=== PATIENT | male | born 1945 | race Caucasian/White ===

== ENCOUNTER → 2016-10-29 | Outpatient (CLI) | payer MEDICARE, BC, OTHER ==
[~2016-10-29] MED LIST: /BACL20TA PO; ACUL0.5S OD; ADV250INH INH; ADV500INH INH; ALBU17IN INH; AMLO25TA PO; ASPI81TA11 PO; ASPI81TA85 PO; AZEL0.1S; AZEL1POW; BACL10TA PO; BACL10TA2 PO; CELE-19 PO; COUM2.5T11 PO; COZA100T2 PO; DOCU10ELUD PO; DRIS50002 PO; FURO20TA2 PO; GABA-283 PO; GABA300C2 PO; GABA300C3 PO; JANU100T PO; LASI20TA PO; LEVO500T PO; LOSA100T36 PO; LYRI75CA PO; MELO15TA4 PO; METF500T PO; MOBI15TA PO; NEUR300C PO; NYST100024 TOP; OMEP10CASR PO; OMEP20CA3 PO; OMEP40CA2 PO; OXYC1SOL PO; PERC5TAB6 PO; PRED1SUS OD; PRED5TA PO; PRED5TAB PO; ROPI0.25 PO; ROXI1TAB2 PO; SITA50TAB PO; TIOT18INH INH; TRAM50TA2 PO; TYLE325T5 PO; ULTR50TA PO; VITA100037 PO; VITA500047 PO; ZAFI20TA PO; [UNRECOGNIZED DRUG - CODE] PO; [UNRECOGNIZED DRUG - CODE] PO; ipratropium INH; oxycodone OR; proventil inhaler INH; vitamin B OR
== END ==
LOC: M SMT 13:33
PROVIDERS: ATTEND Urology
DX: Z85.46 Personal history of malignant neoplasm of prostate (principal); R97.20 Elevated prostate specific antigen [PSA]

== ENCOUNTER → 2016-11-10 | Outpatient (CLI) | payer MEDICARE, BC, OTHER ==
[~2016-11-10] MED LIST changes: +GABA-282 PO; -GABA300C3 PO
--- NOTE | 2016-11-10 16:09 | REP ---
CERVICAL SPINE SERIES: Full cervical spine series is performed with 9 total views obtained. No compression fracture is seen. There is straightening of the normal cervical lordosis with limited motion with flexion and extension. Anterior bridging osteophytes and diffuse calcification of the anterior longitudinal ligament is noted. There is mild disc space narrowing and subchondral sclerosis at virtually all levels. Posterior osteophytosis and calcification of the posterior longitudinal ligament is noted. There is diffuse narrowing, sclerosis and spurring at the posterior facet joints. Uncovertebral and facet spurring appears to cause mild to moderate neural foraminal narrowing at C4-5 on the left as well as on the right, as well as mild to moderate narrowing of C3-4 on the right. No change from the prior study of 12/10/2014 Signed by Ran Ness MD 11/23/2016 04:35 P
--- NOTE | 2016-11-10 16:13 | REP ---
LUMBOSACRAL SPINE: Seven views of the lumbosacral spine are performed including flexion and extension lateral views, seven total views obtained. COMPARISON: 12/10/2014 Large bridging osteophytes are again seen diffusely involving virtually all levels except for L4-5. There is no compression fracture, with normal lumbar lordosis. There is no spondylolysis. There appears to be minimal anterior spondylolisthesis of L4 which is stable compared to the prior exam. There is mild to moderate diffuse disc space narrowing and subchondral sclerosis with vacuum at L4-5. There is sclerosis at the posterior fact joints with significant spurring at L4-5 and L5-S1. Posterior elements are intact. IMPRESSION: Advanced degenerative changes as discussed in detail above, appears similar to the prior exam of 12/10/2014. Signed by Ran Ness MD 11/11/2016 12:26 P
== END ==
LOC: M RAD 15:09
PROVIDERS: ATTEND Neurological Surgery
DX: M50.90 Cervical disc disorder, unspecified, unspecified cervical region (principal); M25.78 Osteophyte, vertebrae; M51.86 Other intervertebral disc disorders, lumbar region; M47.892 Other spondylosis, cervical region; M50.221 Other cervical disc displacement at C4-C5 level
CPT/HCPCS: 72052; 72114; G0463

== ENCOUNTER → 2017-09-09 | Outpatient (CLI) | payer MEDICARE, BC, OTHER ==
[2017-09-09 14:34] LABS: PROSTATIC SPECIFIC AG MONITOR < 0.01 NG/ML (< 4.0)
== END ==
LOC: M SMT 10:32
DX: Z08 Encounter for follow-up examination after completed treatment for malignant neoplasm (principal); Z85.46 Personal history of malignant neoplasm of prostate
CPT/HCPCS: 84153

== ENCOUNTER → 2018-03-06 | Outpatient (CLI) | payer MEDICARE ==
[2018-03-06 19:32] LABS: PROSTATIC SPECIFIC AG MONITOR < 0.01 NG/ML (< 4.0)
== END ==
LOC: M SMT 12:00
DX: Z85.46 Personal history of malignant neoplasm of prostate (principal)
CPT/HCPCS: 84153

== ENCOUNTER 2018-04-12 08:22 | Day surgery (SDC) | payer MEDICARE ==
[2018-04-12] MEDS ORDERED: GENTAMICIN 100 MG in APPROPRIATE DILUENT 1 EA IV (08:45)
[2018-04-12] MEDS ORDERED: BACTRIM IV 160MG-800MG/10ML VIAL (S0039) XX ×2 (08:45)
[2018-04-12 09:10] LABS: INR 1.04; PROTHROMBIN TIME 13.7 SECONDS (12.1-14.4)
[2018-04-12 09:11] LABS: PARTIAL THROMBOPLASTIN TIME 36.6 SECONDS (25.4-37.6)
[2018-04-12] MEDS: VANCOMYCIN HCL 1,000 MG, VIAL MATE ADAPTER 1 EACH in D5W 250 ML IV (09:15)
[2018-04-12] MEDS ORDERED: fentaNYL 250 MCG/5 ML INJECTION (J3010) As Ordered (10:12)
[2018-04-12] MEDS ORDERED: LIDOCAINE 2% INJ 100 MG/5 ML SDV (FOR ANES.) As Ordered (10:12)
[2018-04-12] MEDS ORDERED: PROPOFOL 200 MG/20 ML VIAL As Ordered (10:12)
[2018-04-12] MEDS ORDERED: MIDAZOLAM INJ 2 MG/2 ML VIAL (J2250) As Ordered (10:12)
[2018-04-12] MEDS ORDERED: ROCURONIUM BROMIDE 50 MG/5 ML VIAL As Ordered ×2 (10:12→10:22)
[2018-04-12] MEDS ORDERED: ONDANSETRON 4MG/2ML VIAL (J2405) As Ordered (10:12)
[2018-04-12] MEDS ORDERED: dexameTHASONE 4 MG/ML 1ML VIAL (J1100) As Ordered (10:12)
[2018-04-12] MEDS ORDERED: PHENYLephrine HCL 500 MCG/5 ML (100MCG/ML) SYRINGE (J2370) As Ordered (10:13)
[2018-04-12] MEDS ORDERED: ePHEDrine SULFATE 25 MG/5 ML(5MG/ML) SYRINGE As Ordered (10:13)
[2018-04-12] MEDS ORDERED: SUGAMMADEX SODIUM 500 MG/5 ML VIAL (BRIDION) As Ordered (10:53)
[2018-04-12] MEDS ORDERED: BACITRACIN OINT 30GM As Ordered (11:34)
[2018-04-12] MEDS: NORCO, ANEXSIA 5/325MG TABLET (HYDROcodone/ACETAMINOPHEN) PO ×2 (12:14→12:38)
[2018-04-12] MEDS ORDERED: ONDANSETRON 4MG/2ML VIAL (J2405) IV (12:15)
[2018-04-12] MEDS ORDERED: ACETAMINOPHEN 650MG ER TAB (TYLENOL ARTHRITIS) PO (12:15)
[2018-04-12] MEDS ORDERED: fentaNYL 100 MCG/2 ML INJECTION (J3010) IV (12:15)
[2018-04-12] MEDS ORDERED: LR 1,000 ML IV (12:15)
[2018-04-12] MEDS ORDERED: BACTRIM 160MG/800MG DS TAB PO (21:00)
== END 2018-04-12 14:37 | disposition home or self-care (01) ==
LOC: M SDC 08:22
DX: N52.9 Male erectile dysfunction, unspecified (principal); H40.9 Unspecified glaucoma; I10 Essential (primary) hypertension; M54.2 Cervicalgia; J44.9 Chronic obstructive pulmonary disease, unspecified; R06.83 Snoring; G47.30 Sleep apnea, unspecified; Z88.8 Allergy status to other drugs, medicaments and biological substances; Z79.899 Other long term (current) drug therapy; Z85.46 Personal history of malignant neoplasm of prostate; Z98.84 Bariatric surgery status; Z96.1 Presence of intraocular lens; Z96.642 Presence of left artificial hip joint; Z96.611 Presence of right artificial shoulder joint; Z96.612 Presence of left artificial shoulder joint
CPT/HCPCS: 54405

== ENCOUNTER → 2018-10-16 | Outpatient (REF) | payer MEDICARE ==
[~2018-10-16] MED LIST changes: +ASPI-225 PO; -ASPI81TA11 PO; +BACT800T5 PO; -CELE-19 PO; +CELE1CAP4 PO; -COUM2.5T11 PO; +COUM2.5T17 PO; -DRIS50002 PO; +DRIS50003 PO; -GABA-282 PO; -GABA-283 PO; +GABA-843 PO; +GABA-845 PO; +LOSA100T50 PO; +MELO15TA28 PO; -MELO15TA4 PO; -METF500T PO; +METF500T13 PO; -NYST100024 TOP; +NYST1POW9 TOP; +PERC5TAB12 PO; -PERC5TAB6 PO; -PRED1SUS OD; +PRED1SUS2 OD; +ROPI0.253 PO; +TYLE650T35 PO
== END ==
LOC: M LAB REF 16:19
PROVIDERS: ATTEND Internal Medicine Nephrology
DX: N39.0 Urinary tract infection, site not specified (principal)

== ENCOUNTER → 2018-10-19 | Outpatient (CLI) | payer MEDICARE ==
--- NOTE | 2018-10-19 13:46 | REP ---
Clinical: Urinary retention. Technique: Real time mason scale ultrasound examination using curved array transducer. Findings: Bilateral kidneys are normal in reniform shape and echogenicity without hydronephrosis, nephrolithiasis, or renal mass lesion. Right kidney measures 11.2 x 5.3 x 4.5 cm and includes 1 cm simple cortical cyst. Left kidney measures 11.3 x 4.8 x 6.5 cm. Bladder is normal in appearance and without wall thickening or mass lesion. Prevoid bladder measures 11.8 x 9.4 x 8.3 cm (600 ml). Postvoid bladder is completely emptied. Impression: Relatively normal renal and bladder ultrasound. Mild chronic medical renal disease cannot be excluded. Electronically Signed by Navdeep Contreras MD 10/19/2018 01:38 P
== END ==
LOC: M RAD 12:37
PROVIDERS: ATTEND Internal Medicine Nephrology
DX: E11.22 Type 2 diabetes mellitus with diabetic chronic kidney disease (principal); N18.2 Chronic kidney disease, stage 2 (mild); R33.9 Retention of urine, unspecified

== ENCOUNTER → 2019-04-10 | Outpatient (CLI) | payer MEDICARE, BC, OTHER ==
[~2019-04-10] MED LIST changes: -/BACL20TA PO; +BACL1TAB9 PO; -DOCU10ELUD PO; +DOCU5LIQ PO; +[UNRECOGNIZED DRUG - CODE] PO; -[UNRECOGNIZED DRUG - CODE] PO
== END ==
LOC: M SMT 13:23
PROVIDERS: ATTEND Nurse Practitioner Women's Health
DX: Z85.46 Personal history of malignant neoplasm of prostate (principal)